=== PATIENT | female | born 1970 | race Caucasian/White ===

== ENCOUNTER → 2017-05-23 | Outpatient (CLI) | payer OTHER ==
[2017-05-23 13:50] LABS: ALBUMIN 3.3 g/dL (3.4-5.0); ALBUMIN/GLOBULIN RATIO 0.8 (1.0-1.7); CALCIUM 9.2 mg/dL (8.5-10.1); CREATININE 0.8 mg/dL (0.6-1.0); GFR 76.9; TOTAL BILIRUBIN 0.3 mg/dL (0.2-1.0); TOTAL PROTEIN 7.5 g/dL (6.4-8.2)
[2017-05-23 13:56] LABS: BASO # 0.1 x10^3/uL (0.0-0.2); BASO % 1 % (0-3); EOS # 0.3 x10^3/uL (0.0-0.7); EOS % 3 % (0-3); HEMATOCRIT 37.7 % (36.0-47.0); HEMOGLOBIN 12.3 g/dL (12.0-15.5); LYMPH # 3.5 x10^3/uL (1.0-4.8); LYMPH % 33 % (24-48); MEAN CORPUSCULAR HEMOGLOBIN 27 pg (25-35); MEAN CORPUSCULAR HGB CONC 33 g/dL (31-37); MEAN CORPUSCULAR VOLUME 82 fL (79-100); MONO # 0.8 x10^3/uL (0.0-1.1); MONO % 8 % (0-9); NEUT % 56 % (31-73); PLATELET COUNT 344 x10^3/uL (140-400); RED CELL DISTRIBUTION WIDTH 15.4 % (11.5-14.5); WHITE BLOOD COUNT 10.8 x10^3/uL (4.0-11.0)
[2017-05-23 15:26] LABS: SEDIMENTATION RATE 37 (0-25)
[2017-05-24 13:58] LABS: FREE T4 1.01 ng/dL (0.76-1.46); THYROID STIM HORMONE (TSH) 4.104 uIU/mL (0.358-3.740)
== END | disposition home or self-care (01) ==
LOC: LAB 12:36
PROVIDERS: ATTEND Physician Assistant
DX: E03.9 Hypothyroidism, unspecified (principal); E66.9 Obesity, unspecified; G47.19 Other hypersomnia; R51 Headache
CPT/HCPCS: 36415; 80053; 84439; 84443; 85025; 85651

== ENCOUNTER → 2018-04-26 | Outpatient (CLI) | payer OTHER ==
--- NOTE | 2018-04-27 08:51 | RAD ---
Examination: 2 views of the right knee HISTORY: History of right knee pain COMPARISON: None available FINDINGS: The alignment of the knee joint grossly appears unremarkable. There is no acute fracture or dislocation identified. Mild joint space loss identified in the medial, lateral, patellofemoral compartments. IMPRESSION: 1. No acute osseous findings. 2. Mild tricompartmental degenerative changes. Electronically signed by: Leodan Ramos MD (04/27/2018 8:47 AM) [facility]
== END | disposition home or self-care (01) ==
LOC: RAD 16:04
PROVIDERS: ATTEND Physician Assistant
DX: M17.11 Unilateral primary osteoarthritis, right knee (principal); E03.9 Hypothyroidism, unspecified; E66.9 Obesity, unspecified
CPT/HCPCS: 73560